=== PATIENT | male | born 1990 | race Caucasian/White ===

== ENCOUNTER 2017-02-26 14:22 | Emergency (ER) | payer OTHER ==
[~2017-02-26] VITALS: Ht 170.2 cm; Wt 98.3 kg
[2017-02-26] MEDS ORDERED: MAALOX/HYOSCYAMINE/LIDOCAINE 45 ML BTL PO ONE ×2 (15:00→18:30)
[2017-02-26 15:24] LABS: HEMATOCRIT 49.1 % (39.2-51.8); HEMOGLOBIN 16.8 g/dL (13.7-18.0); WHITE BLOOD COUNT 7.9 x10^3/uL (3.4-10)
[2017-02-26 15:36] LABS: ASPARTATE AMINO TRANSFERASE 21 U/L (15-37); BLOOD UREA NITROGEN 13 mg/dL (7-18)
[2017-02-26] MEDS ORDERED: MAALOX/HYOSCYAMINE/LIDOCAINE 45 ML BTL ONE (18:14)
[2017-02-26 18:59] VITALS: BP 118/86
== END 2017-02-26 19:34 | disposition left against medical advice (07) ==
LOC: ED 19:28
DX: K29.00 Acute gastritis without bleeding (principal)
CPT/HCPCS: 36415; 74020; 80053; 81003; 83690; 85025; 99285